=== PATIENT | male | born 1945 | race Asian ===

== ENCOUNTER → 2016-11-25 | Outpatient (CLI) | payer OTHER ==
[~2016-11-25] VITALS: Ht 157.5 cm; Wt 45.6 kg
[~2016-11-25] MED LIST: MELATONIN5 M4 PO; ZYRTEC10 M3 PO
== END | disposition home or self-care (01) ==
LOC: AMB 08:04
PROC: 0DJD8ZZ Inspection of Lower Intestinal Tract, Via Natural or Artificial Opening Endoscopic (ICD-10-PCS; principal; 2016-11-25)
DX: Z12.11 Encounter for screening for malignant neoplasm of colon (principal); K64.8 Other hemorrhoids; K57.30 Diverticulosis of large intestine without perforation or abscess without bleeding; R73.03 Prediabetes; I10 Essential (primary) hypertension; Z82.5 Family history of asthma and other chronic lower respiratory diseases; Z83.3 Family history of diabetes mellitus